=== PATIENT | male | born 1950 | race Caucasian/White ===

== ENCOUNTER 2017-11-06 17:12 | Emergency (ER) | payer MEDICARE, MEDICAID ==
[2017-11-06 18:52] LABS: Hematocrit 39 % (42-52); Hemoglobin 13.3 g/dl (14.0-18.0); Mean Corpuscular HGB Conc 34 g/dl (31-36); Mean Corpuscular Hemoglobin 36 pg (27-31); Mean Corpuscular Volume 103 fL (80-94); Red Blood Count 3.75 10^6/ul (4.0-5.4); Red Cell Distribution Width 14 % (10.5-15); White Blood Count 4.4 10^3/ul (3.5-10.8)
[2017-11-06 19:00] LABS: INR 1.13 (0.77-1.02)
--- NOTE | 2017-11-06 19:03 | RAD ---
Indication: Chest pain. Single frontal view of the chest performed at 1834 hours was reviewed. No prior study is available for comparison.. Cardiomegaly is noted. Mild interstitial prominence consistent with vascular congestion is noted. No definite pneumonia is noted. IMPRESSION: CARDIOMEGALY WITH LIKELY INTERSTITIAL EDEMA.
[2017-11-06 19:04] LABS: EGFR Non-African American 80.6 (>60)
[2017-11-06 19:49] LABS: ABS Basophils 0 10^3/ul (0-0.2); ABS Eosinophils 0.2 10^3/ul (0-0.6); ABS Lymphocytes 0.6 10^3/ul (1.0-4.8); ABS Monocytes 0.5 10^3/ul (0-0.8); ABS Neutrophils 3.1 10^3/ul (1.5-7.7); ABS Nucleated RBC 0 10^3/ul; Eosinophil % 5.6 % (0-6); Lymphocyte % 12.5 % (25-47); Mean Platelet Volume 8.7 um3 (7.4-10.4); Nucleated Red Blood Cells % 0.1; Platelet Count 79 10^3/ul (150-450)
[2017-11-06] MEDS ORDERED: Iohexol 350* (CONTRAST) 500 ML MDV IV ONE ×2 (19:58→20:54)
--- NOTE | 2017-11-06 21:05 | RAD ---
Indication: Chest pain, positive d-dimer. Contrast: Administered 77.2 ml of OMNIPAQUE 350 mg/ml CTA of the chest performed for pulmonary embolus was performed. Coronal and sagittal reconstructed images were obtained. Pulmonary arterial tree is well opacified. No filling defects are present to suggest pulmonary embolus. There are displaced intimal calcifications in the aortic arch and descending aorta suspicious for aortic dissection. Cardiomegaly is noted. There may be a small pericardial effusion. The trachea and major bronchi appear patent. There is some airspace disease in the left upper lobe, right middle lobe noted. The visualized abdominal organs are unremarkable. IMPRESSION: NO EVIDENCE OF PULMONARY EMBOLUS. THERE IS SUSPICION FOR AORTIC DISSECTION AND REPEAT CTA OF THE AORTA AND ABDOMEN AND PELVIS IS SUGGESTED.
--- NOTE | 2017-11-06 21:15 | RAD ---
Indication: Chest pain. Contrast: Administered 100.2 ml of OMNIPAQUE 350 mg/ml CTA of the chest including the thoracic aorta, abdominal aorta and pelvis was obtained. Coronal and sagittal reconstructed images were obtained. 3-D reconstructed images were also obtained. There is a type a aortic dissection arising from the ascending aorta just distal to the aortic valve and extending to the descending aorta and both iliac arteries extending to the common femoral arteries bilaterally. There is normal flow noted in the great vessels. The common carotid arteries, brachiocephalic artery and left subclavian artery are well-perfused. Celiac axis and superior mesenteric artery as well as the right renal artery is well perfused. There may be obstruction of the left renal artery although there may be an accessory left renal artery with blood flow noted. Decreased size and nephrogram of the left kidney is noted. There is dissection extending into both common iliac arteries. The external iliac artery demonstrates dissection bilaterally. The right femoral artery demonstrates normal flow. Lung bases demonstrate scattered infiltrates in the left upper lobe, right middle lobe and right lower lobe. Cardiomegaly is noted. There may be a trace pericardial effusion noted. The liver is normal in size. No focal lesions or intrahepatic ductal dilatation is noted. The gallbladder demonstrates no calcified gallstones. No pericholecystic fluid or wall thickening is identified. The pancreas demonstrates no mass or pancreatic duct dilatation. No adrenal lesions are noted. There is delay in a portion of the nephrogram of the left kidney. This suggests hypoperfusion. The retroperitoneal lymphadenopathy is noted. The metatarsals with stool. Prostate is enlarged. Urinary bladder is partially collapsed. Left-sided inguinal hernia. IMPRESSION: THERE IS A TYPE A AORTIC DISSECTION EXTENDING FROM THE ASCENDING AORTA, DESCENDING AORTA INTO BOTH EXTERNAL ILIAC ARTERIES WITH NORMAL RIGHT COMMON FEMORAL ARTERY. NORMAL FLOW IS NOTED IN BOTH CAROTID ARTERIES WELL BOTH SUBCLAVIAN ARTERIES. THERE IS HYPOPERFUSION OF THE LEFT KIDNEY WITH PROBABLE ACCESSORY ARTERY FEEDING THE LEFT KIDNEY. FINDINGS DISCUSSED WITH DR. JEAN AT 2100 HOURS
[2017-11-06] MEDS ORDERED: Labetalol IV* 200 MG in NS 0.9% 250 ML* 160 ML IVPB ONE (21:24)
--- NOTE | 2017-11-06 21:31 | ED ---
Progress - Progress Note Progress Note: I assumed care of this patient pending transfer. The patient wishes to be transferred to [facility]. Patient currently does not have significant pain. He recently had radiologist callback report on a CT angiogram of the chest showing large thoracic aortic dissection involving one of the renal arteries. Blood pressures have been well controlled throughout his ER visit. His blood pressure currently is 130/54. His heart rate is in the 60s. Previous to this his blood pressure has been running in the 90s systolic. He appears very comfortable. Diagnosis: Thoracic aortic dissection Consultation: With Dr. Weller a cardiovascular thoracic surgeon at [facility]. He accepts the patient to the ICU. A labetalol drip will be started at its lowest dose to keep blood pressures as low as tolerated. Re-Evaluation - Re-Evaluation First Eval Re-Evaluation Time: 21:31 Change: Unchanged - Cardiothoracic surgeon at [facility] calls back and tells us that they are unable to accept the transfer at this time. Second Eval Re-Evaluation Time: 22:12 Change: Unchanged - Case was accepted for transfer at [facility] by Dr Bhakta (CT surg). Pt will go to the ER, care of Dr. MARTINEZ Course/Dx - Course Course Of Treatment: See my note above. The patient currently is very stable. He has had 2 CT angiograms of the chest. The first was for pulmonary embolism. This did not show PE. The second showed large Quinton type A thoracic dissection which extends distally through the level of the iliac arteries. His EKG showed low voltage with just nonspecific flattening of the ST segments. The patient remains very comfortable. - Diagnoses Provider Diagnoses: Dissecting aneurysm of thoracic aorta, Quinton type A, Chest pain - Provider Notifications Discussed Care Of Patient With: Dr. Weller - CT surgeon at [facility] accepts in transfer to ICU. Reason For Transfer: Specialty or service not available at [facility]. - Critical Care Time Critical Care Time: 30-74 min - Critical care time excluding separately billable procedures. Discharge - Sign-Out/Discharge Documenting (check all that apply): Discharge/Admit/Transfer - Discharge Plan Condition: Guarded Disposition: TRANS HIGHER LVL OF CARE FAC Referrals: Sonny Griffith MD [Primary Care Provider] - - Billing Disposition and Condition Condition: GUARDED Disposition: EMTALA
--- NOTE | 2017-11-06 21:36 | ED ---
Nikhil Myers Jennifer, scribed for Austin Robins MD on 11/06/17 at 1817 . HPI Chest Pain - HPI Summary HPI Summary: The patient is a 67 year old male brought in by EMS for intermittent chest pain that began today. The patient states he woke up feeling like he couldnt breathe , had ear pain, and had pain in his upper chest on both sides. The patient states it worsened one hour ago, so he called EMS. He rates the pain a 9/10 in the ED. The patient additionally complains of upper back pain, right arm pain, sweatiness, shortness of breath, and reflux if he lies down. He denies nausea and abdominal pain. - History of Current Complaint Time Seen by Provider: 11/06/17 17:49 Hx Obtained From: Patient Onset/Duration: Started Hours Ago, Still Present, Worse Since - one hour ago Timing: Intermittent Initial Severity: Severe Current Severity: Severe Pain Intensity: 9 Pain Scale Used: 0-10 Numeric Chest Pain Location: Upper Sternal Chest Pain Radiates: No Chest Pain Radiates To:: Back - Upper back, Arm - Right Aggravating Factor(s): Nothing Alleviating Factor(s): Nothing Associated Signs and Symptoms: Positive: Other: - shortness of breath, ear pain , chest pain, upper back pain, right arm pain, sweatiness, reflux. NEGATIVE: nausea, abdominal pain - Allergy/Home Medications Allergies/Adverse Reactions: Allergies Allergy/AdvReac Type Severity Reaction Status Date / Time Penicillins Allergy Hives Verified 11/06/17 18:48 Home Medications: Home Medications NK [No Home Medications Reported] 11/06/17 [History Confirmed 11/06/17] PMH/Surg Hx/FS Hx/Imm Hx Endocrine/Hematology History: Denies: Hx Diabetes Cardiovascular History: Reports: Hx Hypercholesterolemia, Hx Hypertension Respiratory History: Reports: Hx Asthma Musculoskeletal History: Reports: Hx Arthritis Infectious Disease History: No Infectious Disease History: Denies: Traveled Outside the [place] in Last 30 Days - Family History Known Family History: Positive: Cardiac Disease - Social History Hx Tobacco Use: No Smoking Status (MU): Never Smoked Tobacco Review of Systems Positive: Skin Diaphoresis Positive: Ear Ache Positive: Chest Pain Positive: Shortness Of Breath Gastrointestinal: Other - Reflux Negative: Abdominal Pain, Nausea Positive: Myalgia - Upper back, right arm pain All Other Systems Reviewed And Are Negative: Yes Physical Exam - Summary Physical Exam Summary: General: well-appearing, no pain distress Skin: warm, color reflects adequate perfusion, dry Head: normal Eyes: EOMI, DEAN ENT: normal Neck: supple, nontender Respiratory: CTA, breath sounds present Cardiovascular: RRR Abdomen: soft, nontender Bowel: present Musculoskeletal: normal, strength/ROM intact Neurological: normal, sensory/motor intact, A&O x3 Psychological: affect/mood appropriate Triage Information Reviewed: Yes Vital Signs On Initial Exam: Initial Vitals Temp Pulse Resp BP Pulse Ox 97.2 F 61 15 99/41 97 11/06/17 17:57 11/06/17 17:57 11/06/17 17:57 11/06/17 17:57 11/06/17 17:57 Vital Signs Reviewed: Yes Diagnostics - Vital Signs Vital Signs Temp Pulse Resp BP Pulse Ox 11/06/17 17:57 97.2 F 61 15 99/41 97 - Laboratory Lab Results: Lab Results 11/06/17 11/06/17 11/06/17 Range/Units 18:28 18:28 18:28 WBC 4.4 (3.5-10.8) 10^3/ul RBC 3.75 L (4.0-5.4) 10^6/ul Hgb 13.3 L (14.0-18.0) g/dl Hct 39 L (42-52) % MCV 103 H (80-94) fL MCH 36 H (27-31) pg MCHC 34 (31-36) g/dl RDW 14 (10.5-15) % Plt Count 79 L (150-450) 10^3/ul MPV 8.7 (7.4-10.4) um3 Neut % (Auto) 70.8 (38-83) % Lymph % (Auto) 12.5 L (25-47) % [place]ien[place] % (Auto) 10.7 H (0-7) % Eos % (Auto) 5.6 (0-6) % Baso % (Auto) 0.4 (0-2) % Absolute Neuts (auto) 3.1 (1.5-7.7) 10^3/ul Absolute Lymphs (auto) 0.6 L (1.0-4.8) 10^3/ul Absolute Monos (auto) 0.5 (0-0.8) 10^3/ul Absolute Eos (auto) 0.2 (0-0.6) 10^3/ul Absolute Basos (auto) 0 (0-0.2) 10^3/ul Absolute Nucleated RBC 0 10^3/ul Nucleated RBC % 0.1 INR (Anticoag Therapy) 1.13 H (0.77-1.02) APTT 31.0 (26.0-36.3) seconds D-Dimer, Quantitative > 1050 H (Less Than 230) ng/mL Sodium (139-145) mmol/L Potassium (3.5-5.0) mmol/L Chloride (101-111) mmol/L Carbon Dioxide (22-32) mmol/L Anion Gap (2-11) mmol/L BUN (6-24) mg/dL Creatinine (0.67-1.17) mg/dL Est GFR ( Amer) (>60) Est GFR (Non-Af Amer) (>60) BUN/Creatinine Ratio (8-20) Glucose (70-100) mg/dL Lactic Acid (0.5-2.0) mmol/L Calcium (8.6-10.3) mg/dL Magnesium (1.9-2.7) mg/dL Total Bilirubin (0.2-1.0) mg/dL AST (13-39) U/L ALT (7-52) U/L Alkaline Phosphatase (34-104) U/L Ammonia (16-53) mcmol/L Total Creatine Kinase (10-223) U/L CK-MB (CK-2) (0.6-6.3) ng/mL Troponin I (<0.04) ng/mL C-Reactive Protein (< 5.00) mg/L B-Natriuretic Peptide 588 H ( - 100) pg/mL Total Protein (6.4-8.9) g/dL Albumin (3.2-5.2) g/dL Globulin (2-4) g/dL Albumin/Globulin Ratio (1-3) Lipase (11.0-82.0) U/L TSH (0.34-5.60) mcIU/mL 11/06/17 11/06/17 11/06/17 Range/Units 18:28 18:28 18:28 WBC (3.5-10.8) 10^3/ul RBC (4.0-5.4) 10^6/ul Hgb (14.0-18.0) g/dl Hct (42-52) % MCV (80-94) fL MCH (27-31) pg MCHC (31-36) g/dl RDW (10.5-15) % Plt Count (150-450) 10^3/ul MPV (7.4-10.4) um3 Neut % (Auto) (38-83) % Lymph % (Auto) (25-47) % [place]ien[place] % (Auto) (0-7) % Eos % (Auto) (0-6) % Baso % (Auto) (0-2) % Absolute Neuts (auto) (1.5-7.7) 10^3/ul Absolute Lymphs (auto) (1.0-4.8) 10^3/ul Absolute Monos (auto) (0-0.8) 10^3/ul Absolute Eos (auto) (0-0.6) 10^3/ul Absolute Basos (auto) (0-0.2) 10^3/ul Absolute Nucleated RBC 10^3/ul Nucleated RBC % INR (Anticoag Therapy) (0.77-1.02) APTT (26.0-36.3) seconds D-Dimer, Quantitative (Less Than 230) ng/mL Sodium 140 (139-145) mmol/L Potassium 4.1 (3.5-5.0) mmol/L Chloride 105 (101-111) mmol/L Carbon Dioxide 29 (22-32) mmol/L Anion Gap 6 (2-11) mmol/L BUN 26 H (6-24) mg/dL Creatinine 0.93 (0.67-1.17) mg/dL Est GFR ( Amer) 103.6 (>60) Est GFR (Non-Af Amer) 80.6 (>60) BUN/Creatinine Ratio 28.0 H (8-20) Glucose 104 H (70-100) mg/dL Lactic Acid 1.9 (0.5-2.0) mmol/L Calcium 8.8 (8.6-10.3) mg/dL Magnesium 1.9 (1.9-2.7) mg/dL Total Bilirubin 0.80 (0.2-1.0) mg/dL AST 26 (13-39) U/L ALT 18 (7-52) U/L Alkaline Phosphatase 44 (34-104) U/L Ammonia 36 (16-53) mcmol/L Total Creatine Kinase 114 (10-223) U/L CK-MB (CK-2) 5.3 (0.6-6.3) ng/mL Troponin I 0.03 (<0.04) ng/mL C-Reactive Protein < 1.00 (< 5.00) mg/L B-Natriuretic Peptide ( - 100) pg/mL Total Protein 6.4 (6.4-8.9) g/dL Albumin 4.0 (3.2-5.2) g/dL Globulin 2.4 (2-4) g/dL Albumin/Globulin Ratio 1.7 (1-3) Lipase 62 (11.0-82.0) U/L TSH 3.91 (0.34-5.60) mcIU/mL Result Diagrams: 11/06/17 18:28 11/06/17 18:28 Lab Statement: Any lab studies that have been ordered have been reviewed, and results considered in the medical decision making process. - Radiology CXR Xray Interpretation: Positive (See Comments) - CARDIOMEGALY WITH LIKELY INTERSTITIAL EDEMA. Dr. Robins has reviewed this report. Radiology Interpretation Completed By: Radiologist - EKG 17:55 Cardiac Rate: Bradycardia EKG Rhythm: Sinus Bradycardia - [address] Segment: Non-Specific - Half mm ST elevation in VT, low voltage in peripheral leads Ectopy: None Chest Pain Course/Dx - Course Course Of Treatment: CT RESULTS PENDING AT SHIFT CHANGE. PATIENT SIGNED OUT TO DR BELLAMY AT SHIFT CHANGE. - Diagnoses Provider Diagnoses: Dissecting aneurysm of thoracic aorta, Clayton type A, Chest pain - Critical Care Time Critical Care Time: 30-74 min Discharge - Sign-Out/Discharge Documenting (check all that apply): Sign-Out Patient Signing out patient TO: Carlyle Bellamy - Discharge Plan Condition: Guarded Disposition: TRANS HIGHER LVL OF CARE FAC Referrals: Sonny Griffith MD [Primary Care Provider] - - Billing Disposition and Condition Condition: GUARDED Disposition: EMTALA The documentation as recorded by the Nikhil garrett Jennifer accurately reflects the service I personally performed and the decisions made by me, Austin Robins MD.
[2017-11-06 22:56] VITALS: BP 111/51
== END 2017-11-06 23:12 | disposition short-term general hospital (02) ==
LOC: ED 17:12
DX: I71.01 Dissection of thoracic aorta (principal); R07.9 Chest pain, unspecified; R06.02 Shortness of breath; H92.09 Otalgia, unspecified ear; M54.9 Dorsalgia, unspecified; M79.601 Pain in right arm
CPT/HCPCS: 36415; 71045; 71275; 74174; 80053; 82140; 82550; 82553; 83605; 83690; 83735; 83880; 84443; 84484; 85025; 85379; 85610; 85730; 86140; 93005; 99285; Q9967

== ENCOUNTER 2017-11-16 02:07 | Emergency (ER) | payer MEDICAID, MEDICARE ==
[~2017-11-16 02:07] MED LIST: EPINEPHrine SYR 0.1 MG/ML* (1:10,000) SYRINGE ONE; Magnesium Sulfate 1 GM IV* 100 ML BAG IV ONE; Sodium Bicarbonate 8.4%* 50 ML SYRINGE ONE
[2017-11-16] MEDS ORDERED: Midazolam* 1 MG/ML 5 ML VIAL (5 MG) ONE (02:37)
[2017-11-16] MEDS ORDERED: Midazolam* 1 MG/ML 5 ML VIAL (5 MG) IV ONE ×3 (02:45→04:30)
[2017-11-16 03:15] LABS: Hematocrit 28 % (42-52); Hemoglobin 9.2 g/dl (14.0-18.0); Mean Corpuscular HGB Conc 33 g/dl (31-36); Mean Corpuscular Hemoglobin 32 pg (27-31); Mean Corpuscular Volume 99 fL (80-94); Mean Platelet Volume 9.4 um3 (7.4-10.4); Platelet Count 55 10^3/ul (150-450); Red Blood Count 2.85 10^6/ul (4.0-5.4); Red Cell Distribution Width 17 % (10.5-15); White Blood Count 12.4 10^3/ul (3.5-10.8)
[2017-11-16] MEDS ORDERED: Levofloxacin 750 MG IVPREMIX(* 750 MG/150 ML BAG IVPB ONE (03:15)
[2017-11-16] MEDS ORDERED: Vancomycin(*) 1,000 MG in NS 0.9% 250 ML* 250 ML IVPB ONE (03:16)
[2017-11-16 03:17] LABS: EGFR Non-African American 36.2 (>60)
[2017-11-16] MEDS ORDERED: Iodixanol* (CONTRAST) 320 MG/ML 100 ML SDV IV ONE (03:23)
[2017-11-16 03:38] LABS: INR 1.4 (0.77-1.02)
[2017-11-16 03:46] LABS: Monocytes % 6 % (0-7)
[2017-11-16 03:58] LABS: Urine Appearance Cloudy; Urine Blood 3+ (Negative); Urine Color Yellow; Urine Ketones Negative (Negative); Urine Protein 1+(30 mg/dL) (Negative); Urine Specific Gravity 1.014 (1.010-1.030); Urine Urobilinogen Negative (Negative)
[2017-11-16] MEDS ORDERED: NS 0.9% 1000 ML* 2,000 ML IV ONE (04:09)
--- NOTE | 2017-11-16 04:32 | ED ---
Kaylynn Myers Emily, scribed for Lis Casillas MD on 11/16/17 at 0351 . Cardiac Resuscitation - HPI Summary HPI Summary: This patient is a 67 year old M BIBA to [facility] with a chief complaint of bleeding from previous CT sites in chest [address] [employer]. S/P aortic repair because of aortic dissection at [facility]. Pt sent to [facility] ago. Today staff noticed pt was bleeding from his wound. Pt was bleeding and diaphoretic. - History of Current Complaint Chief Complaint: EDCardiacArrest Stated Complaint: RESP DISTRESS Hx Obtained From: EMS, Medical Records Arrest Witnessed: Yes - Allergies/Home Medications Allergies/Adverse Reactions: Allergies Allergy/AdvReac Type Severity Reaction Status Date / Time Penicillins Allergy Hives Verified 11/06/17 18:48 - Past Medical History Past Medical History: Other: - Thoracic aortic dissection - Family History Family History: Unobtainable Due to Extremis - Social History Social History: Lives in Nursing Care Facility - Review of Systems Review of Systems: Unobtainable Due to Extremis Physical Examination - Summary Physical Exam Summary: VITAL SIGNS: Reviewed. Pt did have cardiac arrest upon arrival to the ER. Pt was found to have PEA. Pt was resuscitated. Pt was given 1 amp of epinephrine, 2 amps of bicarb and intubated, and chest compression started. About 2-3 minutes later, pt has spontaneous circulation with good pressure of 130/80. GENERAL: Patient is a well-developed and nourished male HEAD AND FACE: No signs of trauma. No ecchymosis, hematomas or skull depressions. No sinus tenderness. EYES: pupils are 2 mm, nonreactive EARS: Ear canals and tympanic membranes are within normal limits. MOUTH: Oropharynx within normal limits. NECK: no JVD, pt has ecchymotic area over the neck CHEST: pt does have thoracotomy incision with small area of oozing. Pt does have two surgical drain sites in the upper abdomen, they were bleeding. LUNGS: Clear to auscultation bilaterally. No wheezing or crackles. CVS: Regular rate and rhythm. S1 and S2 present, no murmurs or gallops appreciated. ABDOMEN: Distended EXTREMITIES: Ecchymotic area of right thigh. No edema NEURO: No acute neurological deficits SKIN: Dry and warm - Physical Examination Completion Of Physical Exam Limited Due To: Extremis Resuscitation: Successful Procedures - Central Line Central Line Lumen: single Central Line Position: femoral (R) Complications: none - Laceration/Wound Repair 1 Location: chest - post-surgical drain site Description: Linear Length, Depth and Shape: 1 cm incision Suture Type: Nylon - 2.0 Number of Sutures: 2 2 Location: chest - post-surgical drain site Description: Linear Length, Depth and Shape: 1.5 cm incision Suture Type: Nylon - 2.0 Number of Sutures: 3 - Intubation Intubation Method: orotracheal Tube Size (cm): 7.5 Breath Sounds after Intubation: equal Post Intubation Xray: Yes - Shows good positioning Diagnostics - Vital Signs Vital Signs Temp Pulse Resp BP Pulse Ox 11/16/17 03:20 94.8 F 51 104/83 100 11/16/17 03:15 94.8 F 77 90/59 89 11/16/17 03:09 49 88/53 100 11/16/17 03:07 48 81/52 100 11/16/17 03:04 60 83/53 100 11/16/17 03:00 59 100 11/16/17 02:59 69 107/77 100 11/16/17 02:35 100 94/78 91 11/16/17 02:33 82 101/69 93 11/16/17 02:21 67 99 11/16/17 02:07 94.5 F 0 0 0/0 0 - Laboratory Lab Results: Lab Results 11/16/17 11/16/17 11/16/17 Range/Units 02:45 02:47 02:47 WBC 12.4 H (3.5-10.8) 10^3/ul RBC 2.85 L (4.0-5.4) 10^6/ul Hgb 9.2 L (14.0-18.0) g/dl Hct 28 L (42-52) % MCV 99 H (80-94) fL MCH 32 H (27-31) pg MCHC 33 (31-36) g/dl RDW 17 H (10.5-15) % Plt Count 55 L (150-450) 10^3/ul MPV 9.4 (7.4-10.4) um3 Neut % (Auto) Pending Lymph % (Auto) Pending Charlton % (Auto) Pending Eos % (Auto) Pending Baso % (Auto) Pending Absolute Neuts (auto) Pending Absolute Lymphs (auto) Pending Absolute Monos (auto) Pending Absolute Eos (auto) Pending Absolute Basos (auto) Pending Absolute Nucleated RBC Pending Nucleated RBC % Pending INR (Anticoag Therapy) 1.40 H (0.77-1.02) APTT 27.3 (26.0-36.3) seconds Fibrinogen 108 L (110.8-404.3) mg/dL Patient Temperature ABG pH (7.35-7.45) ABG pCO2 (35-45) mmHg ABG pO2 (80-100) mmHg ABG HCO3 (19-31) mmol/L ABG O2 Saturation (95-98) % ABG Base Excess (-2.0-2.0) Respiration Rate O2 Delivery Device Ventilator Type Vent Mode FiO2 Inspiratory Time PEEP Pressure Support Pressure Control EPAP IPAP BiPAP Sodium (139-145) mmol/L Potassium (3.5-5.0) mmol/L Chloride (101-111) mmol/L Carbon Dioxide (22-32) mmol/L Anion Gap (2-11) mmol/L BUN (6-24) mg/dL Creatinine (0.67-1.17) mg/dL Est GFR ( Amer) (>60) Est GFR (Non-Af Amer) (>60) BUN/Creatinine Ratio (8-20) Glucose (70-100) mg/dL Lactic Acid (0.5-2.0) mmol/L Calcium (8.6-10.3) mg/dL Total Bilirubin (0.2-1.0) mg/dL AST (13-39) U/L ALT (7-52) U/L Alkaline Phosphatase (34-104) U/L Troponin I (<0.04) ng/mL Total Protein (6.4-8.9) g/dL Albumin (3.2-5.2) g/dL Globulin (2-4) g/dL Albumin/Globulin Ratio (1-3) Blood Type O Positive Antibody Screen Negative Crossmatch See Detail 11/16/17 11/16/17 11/16/17 Range/Units 02:47 02:47 03:10 WBC (3.5-10.8) 10^3/ul RBC (4.0-5.4) 10^6/ul Hgb (14.0-18.0) g/dl Hct (42-52) % MCV (80-94) fL MCH (27-31) pg MCHC (31-36) g/dl RDW (10.5-15) % Plt Count (150-450) 10^3/ul MPV (7.4-10.4) um3 Neut % (Auto) Lymph % (Auto) Charlton % (Auto) Eos % (Auto) Baso % (Auto) Absolute Neuts (auto) Absolute Lymphs (auto) Absolute Monos (auto) Absolute Eos (auto) Absolute Basos (auto) Absolute Nucleated RBC Nucleated RBC % INR (Anticoag Therapy) (0.77-1.02) APTT (26.0-36.3) seconds Fibrinogen (110.8-404.3) mg/dL Patient Temperature Not Reportable ABG pH 7.29 L (7.35-7.45) ABG pCO2 60 H (35-45) mmHg ABG pO2 247 H (80-100) mmHg ABG HCO3 26.1 (19-31) mmol/L ABG O2 Saturation 99.2 H (95-98) % ABG Base Excess 1.5 (-2.0-2.0) Respiration Rate 14 O2 Delivery Device vent Ventilator Type Not Reportable Vent Mode pcv FiO2 100 Inspiratory Time 1.0 PEEP 5 Pressure Support Not Reportable Pressure Control 30 EPAP Not Reportable IPAP Not Reportable BiPAP Not Reportable Sodium 132 L (139-145) mmol/L Potassium 5.1 H (3.5-5.0) mmol/L Chloride 96 L (101-111) mmol/L Carbon Dioxide 32 (22-32) mmol/L Anion Gap 4 (2-11) mmol/L BUN 56 H (6-24) mg/dL Creatinine 1.86 H (0.67-1.17) mg/dL Est GFR ( Amer) 46.6 (>60) Est GFR (Non-Af Amer) 36.2 (>60) BUN/Creatinine Ratio 30.1 H (8-20) Glucose 172 H (70-100) mg/dL Lactic Acid 1.9 (0.5-2.0) mmol/L Calcium 7.8 L (8.6-10.3) mg/dL Total Bilirubin 0.70 (0.2-1.0) mg/dL AST 263 H (13-39) U/L ALT 304 H (7-52) U/L Alkaline Phosphatase 50 (34-104) U/L Troponin I 0.67 H* (<0.04) ng/mL Total Protein 4.7 L (6.4-8.9) g/dL Albumin 3.0 L (3.2-5.2) g/dL Globulin 1.7 L (2-4) g/dL Albumin/Globulin Ratio 1.8 (1-3) Blood Type Antibody Screen Crossmatch Result Diagrams: 11/16/17 02:47 11/16/17 02:47 Lab Statement: Any lab studies that have been ordered have been reviewed, and results considered in the medical decision making process. - Radiology CXR Radiology Interpretation Completed By: ED Physician - CXR reveals, per ED physician, cardiomegaly and right lower lobe infiltrate with possible effusion. - EKG 0252 Cardiac Rate: Tachycardia EKG Rhythm: Atrial Fibrillation - 127 BPM EKG Interpretation: No acute ischemic changes Cardiac Resus. Course/Dx - Course Course Of Treatment: S/P aortic repair because of aortic dissection at [facility]. [facility] sent to [facility]. Today staff noticed pt was bleeding from his wound. Pt was bleeding and diaphoretic. Pt did have cardiac arrest upon arrival to the ER. Pt was found to have PEA. Pt was resuscitated. Pt was given 1 amp of epinephrine, 2 amps of bicarb and intubated, and chest compression started. About 2-3 minutes later, pt has spontaneous circulation with good pressure of 130/80. One isofemoral line procedure. R TLC placed in right femoral vein. Pt received one unit of O negative blood. I did contact the transfer center at [facility]. Spoke with Dr. Pickett (CT) accepted pt to emergency room. Gated CTA of the chest, which cannot be done here. Pt was discussed Dr. Correa (emergency) who accepted the pt to the ED. Ambulance was called, ALS requested. Did contact the [employer], tried to fly patient to [facility], but the helicopter was not flying - Diagnoses Provider Diagnoses: Hypovolemic shock, Bleeding from open wound of chest wall, Cardiac arrest - Provider Notifications Instructed by Provider To: Other - Spoke with Dr. Pickett (cardiothoracic surgeon ) at 0336, who accepted pt to emergency room. He requested gated CTA of the chest, which cannot be done here. Pt was discussed Dr. Correa (emergency) at 033, who accepted the pt to the ED - Critical Care Time Critical Care Time: 30-74 min - 70 minutes Discharge - Sign-Out/Discharge Documenting (check all that apply): Discharge/Admit/Transfer - Transfer - Discharge Plan Condition: Stable Disposition: TRANS HIGHER LVL OF CARE FAC Referrals: Sonny Griffith MD [Primary Care Provider] - The documentation as recorded by the Kaylynn garrett Emily accurately reflects the service I personally performed and the decisions made by me, Lis Casillas MD.
[2017-11-16 05:01] VITALS: BP 104/71
--- NOTE | 2017-11-16 07:29 | RAD ---
INDICATION: Endotracheal tube placement. COMPARISON: Comparison is made with prior study from November 06, 2017. TECHNIQUE: A portable view of the chest was obtained. FINDINGS: The patient is status post sternotomy and cardiac valve surgery since the prior chest x-ray study. There is an endotracheal tube which projects over the midline located approximately 3 cm above the debra. The heart is moderately enlarged and unchanged. There are bibasilar infiltrates, a small right pleural effusion and a trace left pleural effusion. IMPRESSION: 1. POSTSURGICAL CHANGES. 2. STATUS POST INTUBATION. 3. BIBASILAR INFILTRATES AND BILATERAL PLEURAL EFFUSIONS. 4. CARDIOMEGALY.
== END 2017-11-16 05:00 | disposition short-term general hospital (02) ==
LOC: ED 02:07
DX: I46.9 Cardiac arrest, cause unspecified (principal); T81.89XA Other complications of procedures, not elsewhere classified, initial encounter; R57.1 Hypovolemic shock
CPT/HCPCS: 31500; 36415; 36555; 36569; 71045; 80053; 81003; 81015; 82803; 83605; 84484; 85025; 85384; 85610; 85730; 86850; 86900; 86901; 86922; 87086; 93005; 96365; 96366; 99285; 99291; J0171; J2250; J3370; J3475; P9040

== ENCOUNTER → 2018-08-28 19:12 | Emergency (ER) | payer MEDICARE ==
[~2018-08-28 19:12] MED LIST changes: -EPINEPHrine SYR 0.1 MG/ML* (1:10,000) SYRINGE ONE; -Magnesium Sulfate 1 GM IV* 100 ML BAG IV ONE; -Sodium Bicarbonate 8.4%* 50 ML SYRINGE ONE; +oxyCODONE TAB* 5 MG TAB PO ONE
[2018-08-28 20:03] LABS: ABS Basophils 0 10^3/ul (0-0.2); ABS Eosinophils 0.5 10^3/ul (0-0.6); ABS Lymphocytes 0.8 10^3/ul (1.0-4.8); ABS Monocytes 0.6 10^3/ul (0-0.8); ABS Neutrophils 3.4 10^3/ul (1.5-7.7); ABS Nucleated RBC 0 10^3/ul; Eosinophil % 9.5 %; Hematocrit 38 % (42-52); Hemoglobin 13.2 g/dl (14.0-18.0); Lymphocyte % 15.7 %; Mean Corpuscular HGB Conc 34 g/dl (31-36); Mean Corpuscular Hemoglobin 34 pg (27-31); Mean Corpuscular Volume 98 fL (80-94); Mean Platelet Volume 8.7 fL (7.4-10.4); Nucleated Red Blood Cells % 0; Platelet Count 117 10^3/ul (150-450); Red Blood Count 3.89 10^6/ul (4.00-5.40); Red Cell Distribution Width 13 % (10.5-15); White Blood Count 5.4 10^3/ul (3.5-10.8)
[2018-08-28 20:19] LABS: ALT 17 U/L (7-52); AST 25 U/L (13-39); Albumin 4.7 g/dL (3.2-5.2); Albumin/Globulin Ratio 1.7 (1-3); Alkaline Phosphatase 41 U/L (34-104); Anion Gap 9 mmol/L (2-11); BUN/Creatinine Ratio 30.3 (8-20); Blood Urea Nitrogen 43 mg/dL (6-24); C Reactive Protein < 1.00 mg/L (<8.01); CO2 Carbon Dioxide 26 mmol/L (22-32); Calcium 9.7 mg/dL (8.6-10.3); Chloride 100 mmol/L (101-111); EGFR African American 59.6 (>60); EGFR Non-African American 49.3 (>60); Globulin 2.8 g/dL (2-4); Glucose 114 mg/dL (70-100); Potassium 4.4 mmol/L (3.5-5.0); Sodium 135 mmol/L (135-145); Total Protein 7.5 g/dL (6.4-8.9)
--- NOTE | 2018-08-28 21:07 | ED ---
Lower Extremity - HPI Summary HPI Summary: 68-year-old male presents with left hip pain for the past couple weeks. He denies any injury. No numbness or tingling. He states he has history of arthritis. He denies any chest pressure or SOB. He states pain occasionally radiates to his testis and groin. Denies any urinary symptoms. denies any nausea vomiting diarrhea or constipation. He denies any fevers. no back pain. no loss of bowel or bladder or saddle anaesthesia. has history of aortic dissection a couple months ago. - History of Current Complaint Chief Complaint: EDHipPelvisInjury Stated Complaint: HIP PAIN Time Seen by Provider: 08/28/18 19:31 Pain Intensity: 6 - Allergies/Home Medications Allergies/Adverse Reactions: Allergies Allergy/AdvReac Type Severity Reaction Status Date / Time Penicillins Allergy Hives Verified 11/06/17 18:48 PMH/Surg Hx/FS Hx/Imm Hx Endocrine/Hematology History: Denies: Hx Diabetes Cardiovascular History: Reports: Hx Hypercholesterolemia, Hx Hypertension Respiratory History: Reports: Hx Asthma History: Denies: Hx Renal Disease Musculoskeletal History: Reports: Hx Arthritis - Surgical History Surgery Procedure, Year, and Place: TONSILLECTOMY Infectious Disease History: No Infectious Disease History: Denies: Traveled Outside the [place] in Last 30 Days - Family History Known Family History: Positive: Cardiac Disease - Social History Alcohol Use: None Substance Use Type: Reports: None Hx Tobacco Use: No Smoking Status (MU): Never Smoked Tobacco Review of Systems Negative: Fever Negative: Chest Pain Negative: Shortness Of Breath Positive: Myalgia - left hip pain All Other Systems Reviewed And Are Negative: Yes Physical Exam Triage Information Reviewed: Yes Vital Signs On Initial Exam: Initial Vitals Temp Pulse Resp BP Pulse Ox 97.5 F 87 22 150/95 97 08/28/18 19:27 08/28/18 19:27 08/28/18 19:27 08/28/18 19:27 08/28/18 19:27 Vital Signs Reviewed: Yes Appearance: Positive: Well-Appearing Skin: Positive: Warm, Dry Head/Face: Positive: Normal Head/Face Inspection Eyes: Positive: Normal, Conjunctiva Clear ENT: Positive: Pharynx normal Respiratory/Lung Sounds: Positive: Clear to Auscultation, Breath Sounds Present Cardiovascular: Positive: Normal, RRR Abdomen Description: Positive: Nontender, Soft, Other: - nontender left groin Bowel Sounds: Positive: Present Musculoskeletal: Positive: Strength/ROM Intact - left hip with pain, Other - tenderness left hip, pos JACKIE test, good pulses, sensation grossly intact Neurological: Positive: Normal Psychiatric: Positive: Normal Diagnostics - Vital Signs Vital Signs Temp Pulse Resp BP Pulse Ox 08/28/18 19:27 97.5 F 87 22 150/95 97 - Laboratory Lab Results: Lab Results 08/28/18 08/28/18 Range/Units 19:56 19:56 WBC 5.4 (3.5-10.8) 10^3/ul RBC 3.89 L (4.00-5.40) 10^6/ul Hgb 13.2 L (14.0-18.0) g/dl Hct 38 L (42-52) % MCV 98 H (80-94) fL MCH 34 H (27-31) pg MCHC 34 (31-36) g/dl RDW 13 (10.5-15) % Plt Count 117 L (150-450) 10^3/ul MPV 8.7 (7.4-10.4) fL Neut % (Auto) 62.8 % Lymph % (Auto) 15.7 % [place] % (Auto) 11.5 % Eos % (Auto) 9.5 % Baso % (Auto) 0.5 % Absolute Neuts (auto) 3.4 (1.5-7.7) 10^3/ul Absolute Lymphs (auto) 0.8 L (1.0-4.8) 10^3/ul Absolute Monos (auto) 0.6 (0-0.8) 10^3/ul Absolute Eos (auto) 0.5 (0-0.6) 10^3/ul Absolute Basos (auto) 0 (0-0.2) 10^3/ul Absolute Nucleated RBC 0 10^3/ul Nucleated RBC % 0 Sodium 135 (135-145) mmol/L Potassium 4.4 (3.5-5.0) mmol/L Chloride 100 L (101-111) mmol/L Carbon Dioxide 26 (22-32) mmol/L Anion Gap 9 (2-11) mmol/L BUN 43 H (6-24) mg/dL Creatinine 1.42 H (0.67-1.17) mg/dL Est GFR ( Amer) 59.6 (>60) Est GFR (Non-Af Amer) 49.3 (>60) BUN/Creatinine Ratio 30.3 H (8-20) Glucose 114 H (70-100) mg/dL Calcium 9.7 (8.6-10.3) mg/dL Total Bilirubin 0.60 (0.2-1.0) mg/dL AST 25 (13-39) U/L ALT 17 (7-52) U/L Alkaline Phosphatase 41 (34-104) U/L C-Reactive Protein < 1.00 (<8.01) mg/L Total Protein 7.5 (6.4-8.9) g/dL Albumin 4.7 (3.2-5.2) g/dL Globulin 2.8 (2-4) g/dL Albumin/Globulin Ratio 1.7 (1-3) Result Diagrams: 08/28/18 19:56 08/28/18 19:56 Lab Statement: Any lab studies that have been ordered have been reviewed, and results considered in the medical decision making process. - Radiology hip Radiology Interpretation Completed By: ED Physician Summary of Radiographic Findings: arthritis - Ultrasound No standard instances Ultrasound Interpretation Completed By: Radiologist Summary of Ultrasound Findings: IMPRESSION: A few bilateral testicular small hypoechoic lesions which appear nonvascular. In this age group, most lesions of this type are benign, but malignancy cannot. be completely excluded. Referral to urology to assess for need for possible. followup imaging to ensure size stability and/or tumor marker evaluation. Lower Extremity Course/Dx - Course Course Of Treatment: 68-year-old male presents with left hip pain for the past couple weeks. He denies any injury. No numbness or tingling. He states he has history of arthritis. He denies any chest pressure or SOB. He states pain occasionally radiates to his testis and groin. Denies any urinary symptoms. denies any nausea vomiting diarrhea or constipation. He denies any fevers. no back pain. no loss of bowel or bladder or saddle anaesthesia. has history of aortic dissection a couple months ago. on exam lungs CTA. nontender abd. tenderness right hip. pos JACKIE. neurovascular intact. testicular u/s shows few hypovascular lesions that will have follow up with urology about. wbc normal. crp normal. kidney function elevated but better than previous. xray read by me as arthritis. gave pain medication and feeling better. discussed if anything changes to return otherwise should follow up with primary. patient understand and agrees with plan. - Diagnoses Differential Diagnosis/HQI/PQRI: Positive: Fracture (Closed), Sprain, Strain Provider Diagnoses: Left hip pain Discharge - Sign-Out/Discharge Documenting (check all that apply): Patient Departure Patient Received Moderate/Deep Sedation with Procedure: No - Discharge Plan Condition: Good Disposition: HOME Patient Education Materials: Hip Pain (ED) Referrals: Philipp Levine MD [Primary Care Provider] - Additional Instructions: Take tyenlol every [address] ice on the area Follow up with primary within 5 days Return to ED if develop any new or worsening symptoms - Billing Disposition and Condition Condition: GOOD Disposition: Home
[2018-08-28 22:14] VITALS: BP 145/76
== END | disposition home or self-care (01) ==
LOC: ED 19:12
DX: M25.552 Pain in left hip (principal); M16.12 Unilateral primary osteoarthritis, left hip; Z88.0 Allergy status to penicillin
CPT/HCPCS: 36415; 76870; 80053; 85025; 86140; 99282; A9270-GY